=== PATIENT | female | born 1975 | race Caucasian/White ===

== ENCOUNTER 2017-07-13 11:35 | Emergency (ER) | payer OTHER ==
[~2017-07-13] VITALS: Ht 154.9 cm; Wt 73.0 kg
[2017-07-13 11:58] VITALS: BP 93/79
--- NOTE | 2017-07-13 11:59 | NUR ---
Patient ambulated to bed 03.
--- NOTE | 2017-07-13 12:04 | NUR ---
Dr. Arvind hartuting patient at bedside.
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
[2017-07-13] MEDS ORDERED: FAMOTIDINE 20 MG TAB PO ONE (12:15)
[2017-07-13] MEDS ORDERED: LORATADINE 10 MG TAB PO ONE (12:15)
[2017-07-13] MEDS ORDERED: methylPREDNISolone SS 125 MG in WATER STERILE 2 ML IM ONE (12:15)
[2017-07-13 12:49] VITALS: BP 101/69
[2017-07-13] MEDS ORDERED: ACETAMINOPHEN 325 MG TAB ONE (12:51)
== END 2017-07-13 12:49 | disposition home or self-care (01) ==
LOC: MED 11:35
DX: L50.9 Urticaria, unspecified (principal)
CPT/HCPCS: 96372; 99283; J2930

== ENCOUNTER 2019-02-04 11:48 | Emergency (ER) | payer OTHER ==
[~2019-02-04] VITALS: Ht 157.5 cm; Wt 76.4 kg
[2019-02-04 11:52] VITALS: BP 116/78
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
[2019-02-04] MEDS ORDERED: DEXAMETHASONE 10 MG/ML VIAL IM ONE (13:55)
[2019-02-04] MEDS ORDERED: hydrOXYzine HCL 25 MG TAB PO ONE (13:55)
[2019-02-04] MEDS ORDERED: FAMOTIDINE 20 MG TAB PO ONE (13:55)
[2019-02-04] MEDS ORDERED: diphenhydrAMINE 50 MG/ML VIAL IM ONE (13:55)
[2019-02-04] MEDS ORDERED: ALBUTEROL 0.083% 2.5 MG/3 ML NEBU INH ONE (14:00)
[2019-02-04 16:06] VITALS: BP 122/80
--- NOTE | 2019-02-04 16:06 | NUR ---
Patient discharged with v/s stable. Written and verbal after care instructions given and explained. Patient alert, oriented and verbalized understanding of instructions. Ambulatory with steady gait. All questions addressed prior to discharge. ID band removed. Patient advised to follow up with PMD. Rx of PREDNISONE, CLINDAMYCIN,FAMOTIDINE, ATARAX given. Patient educated on indication of medication including possible reaction and side effects. Opportunity to ask questions provided and answered.
== END 2019-02-04 16:06 | disposition home or self-care (01) ==
LOC: MED 11:48
DX: L50.0 Allergic urticaria (principal); T36.0X5A Adverse effect of penicillins, initial encounter; Y92.89 Other specified places as the place of occurrence of the external cause
CPT/HCPCS: 94640; 96372; 99283; J1100; J1200; J7613